=== PATIENT | female | born 2000 ===

== ENCOUNTER 2020-05-05 21:36 | Inpatient (IN) ==
[2020-05-05 23:25] LABS: ABS Eosinophils 0.2 10^3/ul (0-0.6); ABS Lymphocytes 1.7 10^3/ul (1.0-4.8); ABS Monocytes 0.6 10^3/ul (0-0.8); Hematocrit 42 % (35-47); Hemoglobin 14.7 g/dL (12.0-16.0); Lymphocyte % 22.9 %; Mean Corpuscular HGB Conc 35 g/dL (31-36); Mean Corpuscular Hemoglobin 32 pg (27-31); Mean Corpuscular Volume 92 fL (80-97); Mean Platelet Volume 6.9 fL (7.4-10.4); Nucleated Red Blood Cells % 0.1; Platelet Count 338 10^3/uL (150-450); Red Blood Count 4.62 10^6 /uL (3.70-4.87); Red Cell Distribution Width 13 % (10-15); White Blood Count 7.5 10^3/uL (3.5-10.8)
[2020-05-05 23:42] LABS: ALT 16 U/L (7-52); AST 18 U/L (13-39); Acetaminophen < 15 mcg/mL; Albumin/Globulin Ratio 1.9 (1-3); Alcohol, S < 10 mg/dL (<10); Alkaline Phosphatase 64 U/L (34-104); Anion Gap 8 mmol/L (2-11); Blood Urea Nitrogen 17 mg/dL (6-24); CO2 Carbon Dioxide 27 mmol/L (22-32); Calcium 9.6 mg/dL (8.6-10.3); Chloride 105 mmol/L (101-111); EGFR African American 119.9 (>60); EGFR Non-African American 99.1 (>60); Globulin 2.6 g/dL (2-4); Glucose 108 mg/dL (70-100); Potassium 4.1 mmol/L (3.5-5.0); Salicylate < 2.50 mg/dL (<30); Sodium 140 mmol/L (135-145); Total Protein 7.6 g/dL (6.4-8.9)
[2020-05-05 23:49] LABS: HCG Pregnancy < 0.60 mIU/mL
[2020-05-05 23:56] LABS: TSH Ultra Thyroid Stim Horm 2.84 mcIU/mL (0.34-5.60)
[2020-05-06 00:48] LABS: Urine Appearance Cloudy; Urine Bilirubin Negative (Negative); Urine Blood Negative (Negative); Urine Color Yellow; Urine Glucose Negative (Negative); Urine Ketones Negative (Negative); Urine Nitrite Negative (Negative); Urine Protein Negative (Negative); Urine Specific Gravity 1.028 (1.010-1.030); Urine Urobilinogen Negative (Negative)
[2020-05-06 01:03] LABS: Urine Bacteria Absent (Absent); Urine Red Blood Cell 1+(3-5/hpf) (Absent); Urine Squamous Epithelial Cell Present (Absent); Urine White Blood Cell Trace(0-5/hpf) (Absent)
[2020-05-06 01:05] LABS: Urine Benzodiazepine Screen None Detected (None Detect); Urine Cannabinoids Screen None Detected (None Detect); Urine Opiates Screen None Detected (None Detect)
[2020-05-06] MEDS ORDERED: Al Hydrox/Mg Hydrox/Simet LIQ 30 ML UDC PO PRN (04:45)
[2020-05-06] MEDS: Vitamin THERAPEUTIC TAB PO SCH (09:20)
[2020-05-06] MEDS: Methylphenidate ER 18 mg TAB PO SCH (09:20)
[2020-05-07 06:54] LABS: HDL Cholesterol 54.9 mg/dL
[2020-05-07] MEDS: Vitamin THERAPEUTIC TAB PO SCH (08:53)
[2020-05-07] MEDS: Methylphenidate ER 18 mg TAB PO SCH (08:53)
[2020-05-08] MEDS: Methylphenidate ER 18 mg TAB PO SCH (09:06)
[2020-05-08] MEDS: Vitamin THERAPEUTIC TAB PO SCH (09:06)
[2020-05-09] MEDS: Methylphenidate ER 18 mg TAB PO SCH (09:08)
[2020-05-09] MEDS: Vitamin THERAPEUTIC TAB PO SCH (09:08)
[2020-05-09 12:20] VITALS: BP 116/64
== END 2020-05-09 15:45 | disposition home or self-care (01) ==
LOC: ED 21:36 → BSU 05-06 04:43
PROVIDERS: ADMIT Psychiatry & Neurology Psychiatry; ATTEND Psychiatry & Neurology Psychiatry